=== PATIENT | male | born 1950 | race Two or more races ===

== ENCOUNTER 2019-12-26 14:28 | Outpatient (CLI) | payer OTHER | END 2019-12-26 14:46 | disposition home or self-care (01) | LOC: NUCLEAR 14:28 | PROVIDERS: ATTEND Internal Medicine Endocrinology, Diabetes & Metabolism | DX: M81.0 Age-related osteoporosis without current pathological fracture (principal); E04.8 Other specified nontoxic goiter ==

== ENCOUNTER → 2021-12-31 | Emergency (ER) | payer OTHER ==
[~2021-12-31] VITALS: Ht 167.6 cm; Wt 84.8 kg
[~2021-12-31] MED LIST: SYNTHROID112 MCG PO
== END | disposition home or self-care (01) ==
LOC: ER 10:51
DX: U07.1 COVID-19 (principal)